=== PATIENT | female | born 1960 | race Caucasian/White ===

== ENCOUNTER → 2016-08-05 | Day surgery (SDC) | payer OTHER ==
[~2016-08-05] MED LIST: LIDOCAINE 1%/EPI 1:100,000 20 ML VIAL. IJ ONE; LIDOCAINE 1%/EPI 1:100,000 20 ML VIAL. ONE
[2016-08-05 09:15] VITALS: BP 168/90
--- NOTE | 2016-08-05 11:20 | PDOC ---
BRIEF OPERATIVE NOTE Pre-Op Diagnosis posterior neck cyst excision of 1 cm post neck cyst jad pastrana local ebl <10 ml kinza well dc home. ZOEY PASTRANA MD Aug 05, 2016 11:20
--- NOTE | 2016-08-06 14:40 | PATHOLOGY ---
PATHOLOGY REPORT * * * * * * * * FINAL DIAGNOSIS: Fibroadipose tissue, posterior neck cyst: - Epidermal inclusion cyst, ruptured, with acute and chronic inflammation and foreign body giant cell reaction. COMMENT: There is no evidence of malignancy. (JPM:; d/t: 08/06/16) REPORT ELECTRONICALLY SIGNED BY: Alex Rg M.D. DATE/TIME: 08/06/2016 14:39 * * * * * * * * GROSS PATHOLOGY: The specimen is received in formalin labeled "Jania Norton, posterior neck cyst". Received is an irregular excision of pale petty skin with attached yellow-petty fibroadipose tissue measuring 2.4 x 0.8 x 0.5 cm in greatest dimensions. Sectioning reveals a petty to yellow-petty cut surface throughout with no grossly distinct cystic structure. The specimen is submitted entirely in cassettes A1 and A2. (CAA; 08/05/2016) INITIAL CPT CODE(S): A; 26474 Professional services performed [place] [address] Technical services performed by [facility] at [address] [place] [address] [address] [address]. SPECIMEN(S) RECEIVED: A.Posterior neck cyst CLINICAL HISTORY: Posterior neck cyst PATIENT: JANIA NORTON /AGE: 308/16/1960 (Age: 55) PATIENT #: [id number] ALT CASE #: SPECIMEN COLLECTION DATE: 08/05/2016 SPECIMEN RECEIVED DATE: 08/05/2016 [facility] - [address] [place] [address] - PHONE: [phone] * * * END OF REPORT * * *
--- NOTE | 2016-08-08 23:31 | OP ---
DATE OF SURGERY: 08/05/2016 PREOPERATIVE DIAGNOSIS: Posterior neck cyst. POSTOPERATIVE DIAGNOSIS: Posterior neck cyst. PROCEDURE: Excision of 1-cm posterior neck cyst. SURGEON: Zoey Pastrana M.D. ANESTHESIA: Local. ESTIMATED BLOOD LOSS: Less than 10 mL. INDICATIONS: The patient is a 55-year-old female, who has a posterior neck cyst that has recently become infected. As the infection is now resolved, she is here for excision. DESCRIPTION OF PROCEDURE: After informed consent was obtained, the patient was in the minor operating room. She was placed prone. Her neck was then prepped and draped in the usual sterile fashion. The overlying skin was injected with local anesthetic. Skin incision was made and then the cyst was excised. There were 2 areas on my critical examination that were firm, both in closed approximation to each other. So this entire area was excised sharply. This measured 1 cm. The wound was then inspected. The remaining tissue at the base of the wound appeared to be normal, healthy subcutaneous fat. The wound was closed in layers with 3-0 Vicryl for the deep layer, skin was closed with 4-0 Monocryl in the subcuticular fashion. Sterile dressings were placed. She tolerated the procedure well. There were no apparent complications. She was discharged to home in stable condition. ZOEY PASTRANA MD DR: KATERIN/cielo JOB#: [id number] / [id number] DIMITRI Raygoza MD
== END | disposition home or self-care (01) ==
LOC: SURG 08:52
PROVIDERS: ATTEND Surgery
DX: L72.0 Epidermal cyst (principal); Z90.49 Acquired absence of other specified parts of digestive tract; E66.9 Obesity, unspecified; F10.99 Alcohol use, unspecified with unspecified alcohol-induced disorder; Z87.891 Personal history of nicotine dependence
CPT/HCPCS: 11421; 12041; J3490; 88304

== ENCOUNTER → 2020-12-24 | Outpatient (CLI) | payer OTHER ==
[2016-08-05 09:15] VITALS: BP 168/90
--- NOTE | 2020-12-24 16:39 | CARD ---
MR#: [id number] Date of Study: 12/24/2020 Ordering Physician: AGUSTIN ROB, Referring Physician: AGUSTIN ROB, Tech: Kristie Marlow [facility] APPROVED REPORT EXAM: Two-dimensional and M-mode echocardiogram with Doppler and color Doppler. Other Information Quality : AverageHR: 64bpm Rhythm : NSR INDICATION RISK FACTORS Hypertension Obesity 2D DIMENSIONS RVDd2.8 (2.9-3.5cm)Left Atrium(2D)4.2 (1.6-4.0cm) IVSd1.1 (0.7-1.1cm)Aortic Root(2D)2.8 (2.0-3.7cm) LVDd3.9 (3.9-5.9cm)LVOT Diameter2.0 (1.8-2.4cm) PWd1.1 (0.7-1.1cm)LVDs2.9 (2.5-4.0cm) FS (%) 23.9 %SV31.2 ml LVEF(%)48.3 (>50%) Aortic Valve AoV Peak Gustavo.234.3cm/sAoV VTI52.5cm AO Peak GR.22.0mmHgLVOT Peak Gustavo.110.4cm/s AO Mean GR.12mmHgAVA (VMAX)1.42cm2 AI P 1/2 Wzsm728aw Mitral Valve MV E Hoxcvgja48.3cm/sMV DECEL [id number] MV A Emtmqzgm60.9cm/sE/A Ratio1.2 Pulmonary Valve PV Peak Dwbkkvtg612.4cm/s Tricuspid Valve TR P. Owjpslpn134fe/sTR Peak Gr.22mmHg Pulmonary Vein S1 Xkxeaqit54.8cm/sD2 Xfrvjwzo36.2cm/s PVa [id number] LEFT VENTRICLE The left ventricle is normal size. There is borderline concentric left ventricular hypertrophy. The l eft ventricular systolic function is normal and the ejection fraction is within normal range. Estimat ed ejection fraction 60%. There is normal LV segmental wall motion. The left ventricular diastolic fu nction and filling is normal for age. RIGHT VENTRICLE The right ventricle is normal size. There is normal right ventricular wall thickness. The right ventr icular systolic function is normal. ATRIA The left atrium size is normal. The right atrium size is normal. The interatrial septum is intact wit h no evidence for an atrial septal defect or patent foramen ovale as noted on 2-D or Doppler imaging. AORTIC VALVE The aortic valve is calcified but opens well. Doppler and Color Flow revealed mild aortic regurgitati on. There is no significant aortic valvular stenosis. MITRAL VALVE The mitral valve is normal in structure and function. There is no evidence of mitral valve prolapse. There is no mitral valve stenosis. Doppler and Color-flow revealed trace to mild mitral regurgitation . TRICUSPID VALVE The tricuspid valve is normal in structure and function. Doppler and Color Flow revealed trace tricus pid regurgitation. Estimated PAP 25 mmHg. There is no tricuspid valve stenosis. PULMONIC VALVE The pulmonary valve is normal in structure and function. Doppler and Color Flow revealed mild pulmoni c valvular regurgitation. There is no pulmonic valvular stenosis. GREAT VESSELS The aortic root is normal in size. The ascending aorta is normal in size. The IVC is normal in size a nd collapses >50% with inspiration. PERICARDIAL EFFUSION There is no evidence of significant pericardial effusion. Critical Notification Critical Value: No <Conclusion> The left ventricular systolic function is normal and the ejection fraction is within normal range. E stimated ejection fraction 60%. There is normal LV segmental wall motion. Doppler and Color Flow revealed mild aortic regurgitation. Signed by : Agustin Rob, Electronically Approved : 12/24/2020 16:38:15
== END ==
LOC: ECHO 08:58
PROVIDERS: ATTEND Internal Medicine Cardiovascular Disease
DX: I08.8 Other rheumatic multiple valve diseases (principal); R01.1 Cardiac murmur, unspecified
CPT/HCPCS: 93306